=== PATIENT | male | born 1975 | race Hispanic/Latino ===

== ENCOUNTER 2023-07-12 10:55 | Emergency (ER) | payer BC ==
[2023-07-12 13:19] LABS: SARS-CoV-2 NAA Rapid Test DETECTED (NotDetected)
== END 2023-07-12 13:44 | disposition home or self-care (01) ==
LOC: CSHERS 10:55
DX: U07.1 COVID-19 (principal); I10 Essential (primary) hypertension
CPT/HCPCS: 99283